=== PATIENT | male | born 1990 | race Caucasian/White ===

== ENCOUNTER 2021-01-20 08:46 | Observation (INO) | payer OTHER ==
[~2021-01-20] VITALS: Ht 170.2 cm; Wt 73.2 kg
[2021-01-20] MEDS ORDERED: NS 1,000 ML IV ONE ×3 (08:55→09:25)
[2021-01-20] MEDS ORDERED: ACETAMINOPHEN TAB 650MG DOSE (2X325MG) PO ONE (09:30)
[2021-01-20 09:31] LABS: BASO # 0.1 10^3/uL (0.0-0.2); BASO % 0.3 % (0.0-1.0); EOS # 0.1 10^3/uL (0.0-0.5); EOS % 0.4 % (0.0-3.0); HEMATOCRIT 46.5 % (42.0-52.0); HEMOGLOBIN 15.5 g/dl (13.5-17.5); LYMPH # 0.9 10^3/uL (1.5-5.0); LYMPH % 4.8 % (24.0-44.0); MEAN CORPUSCULAR HGB CONC 33.3 g/dl (32.0-36.5); MONO # 0.8 10^3/uL (0.0-0.8); MONO % 4.2 % (2.0-8.0); NEUTROPHILS # 16.3 10^3/uL (1.5-8.5); NEUTROPHILS % 89.4 % (36.0-66.0); PLATELET COUNT, AUTOMATED 299 10^3/uL (150-450); WHITE BLOOD COUNT 18.2 10^3/uL (4.0-10.0)
[2021-01-20 09:43] LABS: PARTIAL THROMBOPLASTIN TIME 21.8 SECONDS (24.2-38.5); PROTHROMBIN TIME 13.4 SECONDS (12.5-14.3)
--- NOTE | 2021-01-20 09:43 | REP ---
INDICATION: fall/loc. COMPARISON: None. TECHNIQUE: Helical scanning is acquired. 5 mm axial images were reformatted. Coronal MPR images were generated. FINDINGS: Bone window settings demonstrate an intact bony calvarium. There is no evidence of skull fracture or incidental bony calvarial lesion. The visualized paranasal sinuses appear clear. No intraorbital abnormality is seen. On soft tissue window setting images; the lateral, third, and fourth ventricles are normal in size and position. Decker-white differentiation pattern is normal above and below the tentorium. There are is no evidence of intracranial hemorrhage. No mass, edema, infarction, or midline shift is seen. No extra-axial fluid collection is appreciated. IMPRESSION: Negative noncontrast head CT. <Electronically signed by Dami Mensah > 01/20/21 0986
--- NOTE | 2021-01-20 09:49 | REP ---
INDICATION: syncope. COMPARISON: None. FINDINGS: The technique utilized in obtaining the radiograph has magnified the cardiac silhouette and accentuated the interstitial markings. The superior mediastinal structures are midline. The cardiac silhouette is unremarkable in size, shape, and position. The diaphragmatic surfaces of the lungs are regular, and the costophrenic angles are clear. The pulmonary torres are clear. The imaged osseous structures are intact. IMPRESSION: There is no acute cardiopulmonary disease. <Electronically signed by Bobby Mccauley > 01/20/21 0985
[2021-01-20 10:03] LABS: ALBUMIN 4.4 GM/DL (3.2-5.2); BILIRUBIN,DIRECT 0.2 MG/DL (0.0-0.2); BILIRUBIN,TOTAL 0.9 MG/DL (0.2-1.0); CALCIUM LEVEL 9.2 MG/DL (8.5-10.1); CK-MB VALUE MASS 3.9 NG/ML (<3.6); CREATININE FOR GFR 1.9 MG/DL (0.70-1.30); GLOMERULAR FILTRATION RATE 44.2 (>60); MB/CK RELATIVE INDEX 0.47 (< OR =4); POTASSIUM SERUM 5.9 MEQ/L (3.5-5.1); TOTAL PROTEIN 7.8 GM/DL (6.4-8.2); TROPONIN I 0.02 NG/ML (< 0.10)
[2021-01-20] MEDS ORDERED: DEXTROSE 50% 50 ML SYRINGE IV STA (10:13)
[2021-01-20] MEDS ORDERED: SODIUM BICARBONATE 8.4% INJ 50 ML SYRINGE IV STA (10:13)
[2021-01-20] MEDS ORDERED: SOD POLYSTYRENE SULFONATE SUSP 15 GM/60 ML UD PO ONE (10:15)
[2021-01-20] MEDS ORDERED: ALBUTEROL SULFATE 2.5 MG/0.5 ML INH NEB SOLN INH ONE (10:15)
[2021-01-20] MEDS ORDERED: HumuLIN R (REGULAR) INSULIN (NovoLIN R) **100U/ML** PER UNIT IV ONE (10:15)
[2021-01-20] MEDS ORDERED: ACETAMINOPHEN TAB 650MG DOSE (2X325MG) PO PRN (11:10)
[2021-01-20] MEDS: NS 1,000 ML IV SCH ×2 (11:58→20:09)
--- NOTE | 2021-01-20 11:59 | HPEPDOC ---
[facility] Medical History & Physical Date of Admission January 20, 2021 Date of Service: January 20, 2021 Attending Physician: ALICE ROSSI MD History and Physical CHIEF COMPLAINT: fever HISTORY OF PRESENT ILLNESS: Naseem Salas is a 30 year old male who presented to the ED after a syncopal episode this morning. Patient states he was completing a ruck march today where he was alternating between jogging and walking with 47lbs of gear on his back. He notes that he completed about 11.25 miles of this. At some point he began to feel lightheaded and short of breath. He was noted to pass out and fall to the ground. He was told by the people who witness the event that he was out for about 30 seconds and was somewhat confused when he woke up. In the field, rectal temp is reported as 105F. He noted feeling nauseous and vomiting a small amount of Pedialyte after the event before being brought to the hospital. He currently denies nausea. He states he has completed this type of work out multiple times in the past without any issues. He states the only difference today was that he wore compression socks along with his regular socks. He states his feet felt very hot during the run. He does have blisters on his feet which have been hurting when he runs. He also notes a 10lb weight loss over the past 2 weeks while he has been in training. He states it is typical for him to lose weight like this while training. He reports good appetite with normal food and water intake recently. No other recent fevers or chills. No night sweats. PAST MEDICAL HISTORY: None PAST SURGICAL HISTORY: Right wrist plates and screws SOCIAL HISTORY: Intermittent tobacco use last 11 years, 1/2 ppd for 2 weeks at a time when out in the field. No alcohol use. No illicit substance use. Works in the [email or web address], [employer] FAMILY HISTORY: Patient unaware of any medical conditions in his family members. ALLERGIES: Please see below. REVIEW OF SYSTEMS: CONSTITUTIONAL: Positive as per HPI. Denies chills, night sweats, fatigue. HEENT: Denies change in vision, change in hearing. CARDIOVASCULAR: Per HPI RESPIRATORY: Dry cough this morning. Denies hemoptysis, wheezing. GASTROINTESTINAL: Positive per HPI. Denies abdominal pain, diarrhea, constipation, blood in stool. GENITOURINARY: Denies dysuria, urinary frequency, urinary urgency. SKIN: Denies rash, lesions. MUSCULOSKELETAL: Denies joint pain or muscle aches. NEUROLOGICAL: Denies headache, weakness. PSYCHIATRIC: Denies change in mood. HOME MEDICATIONS: Please see below. PHYSICAL EXAMINATION: VITAL SIGNS: See below GENERAL: Alert, comfortable, in no acute distress HEENT: Normocephalic, atraumatic, sclera anicteric, dry mucous membranes NECK: Supple, trachea midline, no lymphadenopathy CARDIOVASCULAR: Regular rate and rhythm, normal S1 and S2. No murmurs, rubs, or gallops RESPIRATORY: Clear to auscultation bilaterally with equal air entry bilaterally. No wheezing, rhonchi, or rales. ABDOMEN: Soft, nontender, nondistended, bowel sounds present, no masses or hepatosplenomegaly appreciated EXTREMITIES: No cyanosis or edema. Pulses 2+/4 in bilateral upper and lower extremities SKIN: Large open blisters on bilateral foot soles without drainage, erythema, or swelling. NEUROLOGIC: Alert and oriented x3 to person, place and time. No focal deficits appreciated LABORATORY DATA: See below. IMAGING: - Head CT Negative noncontrast head CT. - CXR There is no acute cardiopulmonary disease. MICROBIOLOGY: Please see below. ASSESSMENT: 30 year old male who presented to the ED after a syncopal episode while exercising found to have acute renal failure with high potassium level, admitted for further management. PLAN: # Syncope secondary to heat exhaustion and dehydration - CT head negative - etiology likely dehydration given clinical picture with LEONARDO. IV fluid hydration as below. - also has electrolyte abnormality, monitor on telemetry. # Acute renal failure likely 2/2 dehydration - check urine electrolytes, suspect pre-renal etiology - s/p 2 L NS, continue IV fluids at 125ml/hr # Hyperkalemia likely 2/2 LEONARDO and dehydration - EKG reviewed, question of hyperacute t-wave, monitor on telemetry and repeat EKG when potassium improved - s/p IV sodium bicarb, albuterol, insulin with D50, and Kayexalate in the ED - repeat labs in 4 hours # Elevated WBC count likely 2/2 dehydration - fever prior to presentation, afebrile in the hospital, explained by exercising in the heat - blood cultures x2 drawn and pending - UA negative. CXR negative. - ROS negative for infectious source. No antibiotics at this time. - trend CBC daily, expect resolution with hydration DVT prophylaxis: SC heparin Disposition: - Admitted for observation to med/surg with telemetry monitoring Vital Signs Vital Signs Date Time Temp Pulse Resp B/P (MAP) Pulse Ox O2 Delivery O2 Flow Rate FiO2 01/20/21 11:01 94 18 98 Room Air 01/20/21 11:00 124/68 (86) 01/20/21 09:01 98.0 Laboratory Data Labs 24H Laboratory Tests 2 01/20/21 09:19: Immature Granulocyte % (Auto) 0.9, Neutrophils (%) (Auto) 89.4H, Lymphocytes (%) (Auto) 4.8L, Monocytes (%) (Auto) 4.2, Eosinophils (%) (Auto) 0.4, Basophils (%) (Auto) 0.3, Neutrophils # (Auto) 16.3H, Lymphocytes # (Auto) 0.9L, Monocytes # (Auto) 0.8, Eosinophils # (Auto) 0.1, Basophils # (Auto) 0.1, Nucleated Red Blood Cells % (auto) 0.0, Prothrombin Time 13.4, Prothromb Time International Ratio 1.00, Activated Partial Thromboplast Time 21.8L, POC Lactate (Misc Panel) 1.84, Anion Gap 9, Glomerular Filtration Rate 44.2L, Calcium Level 9.2, Total Bilirubin 0.9, Direct Bilirubin 0.2, Aspartate Amino Transf (AST/SGOT) 52H, Alanine Aminotransferase (ALT/SGPT) 51, Alkaline Phosphatase 72, Total Creatine Kinase 823H, Creatine Kinase MB 3.9H, Creatine Kinase MB Relative Index 0.47, Troponin I 0.02, Total Protein 7.8, Albumin 4.4, Albumin/Globulin Ratio 1.3, Lipase 185 01/20/21 10:04: Urine Color YELLOW, Urine Appearance HAZY, Urine pH 5.0, Urine Specific [place] 1.018, Urine Protein 1+H, Urine Glucose (UA) NEGATIVE, Urine Ketones 1+H, Urine Blood 1+H, Urine Nitrite NEGATIVE, Urine Bilirubin NEGATIVE, Urine Urobilinogen 0.2, Urine Leukocyte Esterase NEGATIVE, Urine WBC (Auto) 3, Urine RBC (Auto) 1, Urine Hyaline Casts (Auto) 12, Urine Bacteria (Auto) 1+H, Urine Squamous Epithel ial Cells 0, Urine Mucus (Auto) SMALL, Urine Sperm (Auto) 5/21/21 10:53: Bedside Glucose (Misc Panel) 75 CBC/BMP Laboratory Tests 01/20/21 09:19 Microbiology Microbiology 01/20/21 Blood Culture, Received Pending 01/20/21 Blood Culture, Received Pending Home Medications No Active Prescriptions or Reported Meds Allergies Coded Allergies: No Known Allergies (Unverified , 01/20/21) GME ATTESTATION GME ATTESTATION My faculty preceptor for this patient encounter was physically present during the encounter and was fully available. All aspects of the patient interview, examination, medical decision making process, and medical care plan development were reviewed and approved by the faculty preceptor. The faculty preceptor is aware and concurs with the plan as stated in the body of this note and will attest to such by his/her cosignature. ATTENDING NOTE I, Alice Rossi, have independently examined this patient and performed my own physical exam, as well as reviewed the documentation and edited where necessary. I have discussed in detail with the resident / student the findings and plan of treatment as documented by the resident / student and edited their note. I agree with their findings and treatment plan and have edited their documentation. I will continue to follow the patient during this hospital stay. Time spent on discharge 35 minutes DAHLIA YEAGER D.O. January 20, 2021 11:59 ALICE ROSSI MD January 20, 2021 13:09
[2021-01-20 13:56] LABS: BLOOD UREA NITROGEN 20 MG/DL (7-18); CALCIUM LEVEL 8.2 MG/DL (8.5-10.1); CARBON DIOXIDE LEVEL 23 MEQ/L (21-32); CHLORIDE LEVEL 108 MEQ/L (98-107); CREATININE FOR GFR 1.31 MG/DL (0.70-1.30); GLOMERULAR FILTRATION RATE > 60.0 (>60); GLUCOSE, FASTING 103 MG/DL (70-100); MAGNESIUM LEVEL 2.2 MG/DL (1.8-2.4); POTASSIUM SERUM 3.8 MEQ/L (3.5-5.1); SODIUM LEVEL 140 MEQ/L (136-145)
[2021-01-20] MEDS: HEPARIN SOD (PORCINE) 5000UNITS/ML 1ML VIAL/SYRINGE SC SCH ×2 (14:00→22:59)
[2021-01-20 15:00] VITALS: BP 110/70
--- NOTE | 2021-01-20 17:06 | ECGEPIP ---
[facility] Test Date: 2021-01-20 Pat Name: DL MERRILL Department: Room: 0102 Gender: Male [employer] Driver: JANICE : 1990 Requested By: DAHLIA YEAGER D.O. Order Number: [id number] Reading MD: Felix Castillo Measurements Intervals [place] Rate: 71 P: 43 VT: 164 QRS: 30 QRSD: 92 T: 17 QT: 390 QTc: 423 Interpretive Statements Normal sinus rhythm with sinus arrhythmia Similar to tracing done 916 on same date Electronically Signed on 01-20-2021 17:05:56 EDT by Felix Castillo
[2021-01-20 19:45] LABS: BLOOD UREA NITROGEN 16 MG/DL (7-18); CALCIUM LEVEL 7.7 MG/DL (8.5-10.1); CARBON DIOXIDE LEVEL 24 MEQ/L (21-32); CHLORIDE LEVEL 110 MEQ/L (98-107); CREATININE FOR GFR 1.01 MG/DL (0.70-1.30); GLOMERULAR FILTRATION RATE > 60.0 (>60); GLUCOSE, FASTING 116 MG/DL (70-100); POTASSIUM SERUM 3.3 MEQ/L (3.5-5.1); SODIUM LEVEL 140 MEQ/L (136-145)
--- NOTE | 2021-01-20 20:33 | ECGEPIP ---
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
[2021-01-20 22:00] VITALS: BP 108/61
[2021-01-21] MEDS: NS 1,000 ML IV SCH (03:45)
[2021-01-21 06:10] VITALS: BP 110/62
[2021-01-21] MEDS: HEPARIN SOD (PORCINE) 5000UNITS/ML 1ML VIAL/SYRINGE SC SCH (06:36)
[2021-01-21 07:33] LABS: BASO % 0.4 % (0.0-1.0); EOS # 0.3 10^3/uL (0.0-0.5); EOS % 3.3 % (0.0-3.0); HEMATOCRIT 38.9 % (42.0-52.0); HEMOGLOBIN 12.8 g/dl (13.5-17.5); LYMPH # 2.3 10^3/uL (1.5-5.0); LYMPH % 27.9 % (24.0-44.0); MEAN CORPUSCULAR HEMOGLOBIN 31.3 pg (27.0-33.0); MEAN CORPUSCULAR HGB CONC 32.9 g/dl (32.0-36.5); MEAN CORPUSCULAR VOLUME 95.1 fl (80.0-96.0); MONO # 0.9 10^3/uL (0.0-0.8); MONO % 11.2 % (2.0-8.0); NEUTROPHILS # 4.7 10^3/uL (1.5-8.5); NEUTROPHILS % 56.7 % (36.0-66.0); PLATELET COUNT, AUTOMATED 231 10^3/uL (150-450); RED BLOOD COUNT 4.09 10^6/uL (4.30-6.10); WHITE BLOOD COUNT 8.2 10^3/uL (4.0-10.0)
[2021-01-21 07:53] LABS: BLOOD UREA NITROGEN 12 MG/DL (7-18); CALCIUM LEVEL 7.7 MG/DL (8.5-10.1); CARBON DIOXIDE LEVEL 22 MEQ/L (21-32); CHLORIDE LEVEL 115 MEQ/L (98-107); CREATININE FOR GFR 0.99 MG/DL (0.70-1.30); GLOMERULAR FILTRATION RATE > 60.0 (>60); GLUCOSE, FASTING 89 MG/DL (70-100); POTASSIUM SERUM 3.7 MEQ/L (3.5-5.1); SODIUM LEVEL 142 MEQ/L (136-145)
--- NOTE | 2021-01-21 12:04 | DS.PDOC ---
Discharge Summary General Date of Admission January 20, 2021 at 11:43 Date of Discharge January 21, 2021 Attending Physician: ALICE ROSSI MD Discharge Summary PROCEDURES PERFORMED DURING STAY: None. ADMITTING DIAGNOSES: Heat exhaustion Dehydration Syncopal episode 2/2 above Acute kidney injury Hyperkalemia DISCHARGE DIAGNOSES: Syncopal episode 2/2 dehydration and heat exhaustion, resolved COMPLICATIONS/CHIEF COMPLAINT: Syncope. HISTORY OF PRESENT ILLNESS: 30 year old male who presented to the ED after a syncopal episode this morning. Patient states he was completing a ruck march today where he was alternating between jogging and walking with 47lbs of gear on his back. He notes that he completed about 11.25 miles of this. At some point he began to feel lightheaded and short of breath. He was noted to pass out and fall to the ground. He was told by the people who witness the event that he was out for about 30 seconds and was somewhat confused when he woke up. In the field, rectal temp is reported as 105F. He noted feeling nauseous and vomiting a small amount of Pedialyte after the event before being brought to the hospital. He currently denies nausea. He states he has completed this type of work out multiple times in the past without any issues. He states the only difference today was that he wore compression socks along with his regular socks. He states his feet felt very hot during the run. He does have blisters on his feet which have been hurting when he runs. He also notes a 10lb weight loss over the past 2 weeks while he has been in training. He states it is typical for him to lose weight like this while training. He reports good appetite with normal food and water intake recently. No other recent fevers or chills. No night sweats. Work up in the ED revealed elevated WBC, elevated potassium, and elevated creatinine. HOSPITAL COURSE: Patient was admitted to the hospital for management of acute kidney injury secondary to dehydration with hyperkalemia. The patient was treated with IV sodium bicarb, albuterol, insulin with D50, and Kayexalate in the ED. He also received 2 L IV fluid with normal saline in the ED. Follow up BMP showed resolution of hyperkalemia and improvement of acute kidney injury. Patient was kept on telemetry to monitor for arrhythmia or changes related to hyperkalemia. He was kept on IV fluids overnight with normal saline at a rate of 125mls/hr. The patient's electrolytes remained stable and his acute kidney injury had resolved on AM lab work on the day of discharge. His WBC count also returned to normal range on the day of discharge. The patient reported feeling well and functioning at his baseline on the day of discharge. DISCHARGE MEDICATIONS: Please see below. ALLERGIES: Please see below. PHYSICAL EXAMINATION ON DISCHARGE: VITAL SIGNS: Please see below. GENERAL: Alert, comfortable, in no acute distress HEENT: Normocephalic, atraumatic, sclera anicteric, dry mucous membranes NECK: Supple, trachea midline, no lymphadenopathy CARDIOVASCULAR: Regular rate and rhythm, normal S1 and S2. No murmurs, rubs, or gallops RESPIRATORY: Clear to auscultation bilaterally with equal air entry bilaterally. No wheezing, rhonchi, or rales. ABDOMEN: Soft, nontender, nondistended, bowel sounds present, no masses or h epatosplenomegaly appreciated EXTREMITIES: No cyanosis or edema. Pulses 2+/4 in bilateral upper and lower extremities SKIN: Large open blisters on bilateral foot soles without drainage, erythema, or swelling. NEUROLOGIC: Alert and oriented x3 to person, place and time. No focal deficits appreciated LABORATORY DATA: Please see below. IMAGING: - Head CT Negative noncontrast head CT. - CXR There is no acute cardiopulmonary disease. PROGNOSIS: Good ACTIVITY: As tolerated. DIET: As tolerated. DISPOSITION: 01 Home, Self-Care. DISCHARGE INSTRUCTIONS: 1. Please follow up with your PCP in 7-10 days 2. Stay hydrated 3. If your symptoms return please call your PCP or return to the ED for further evaluation. ITEMS TO FOLLOWUP ON ON OUTPATIENT: None DISCHARGE CONDITION: Stable. TIME SPENT ON DISCHARGE: Greater than 35 minutes. Vital Signs/I&Os Vital Signs Date Time Temp Pulse Resp B/P (MAP) Pulse Ox O2 Delivery O2 Flow Rate FiO2 01/21/21 06:10 97.8 61 18 110/62 (78) 98 Room Air I&O- Last 24 Hours up to 6 AM 01/21/21 06:00 Intake Total 4220 ml Balance 4220 ml Laboratory Data Labs 24H Laboratory Tests 2 01/20/21 12:50: Anion Gap 9, Glomerular Filtration Rate > 60.0, Calcium Level 8.2L, Magnesium Level 2.2 01/20/21 18:44: Anion Gap 6L, Glomerular Filtration Rate > 60.0, Calcium Level 7.7L 01/21/21 06:52: Anion Gap 5L, Glomerular Filtration Rate > 60.0, Calcium Level 7.7L, Magnesium Level 2.0, Immature Granulocyte % (Auto) 0.5, Neutrophils (%) (Auto) 56.7, Lymphocytes (%) (Auto) 27.9, Monocytes (%) (Auto) 11.2H, Eosinophils (%) (Auto) 3.3H, Basophils (%) (Auto) 0.4, Neutrophils # (Auto) 4.7, Lymphocytes # (Auto) 2.3, Monocytes # (Auto) 0.9H, Eosinophils # (Auto) 0.3, Basophils # (Auto) 0.0, Nucleated Red Blood Cells % (auto) 0.0 01/21/21 10:08: CBC/BMP Laboratory Tests 01/20/21 12:50 01/20/21 18:44 01/21/21 06:52 Microbiology Microbiology 01/20/21 Respiratory Virus Panel (PCR) (RODGER) - Final, Complete 01/20/21 Blood Culture - Preliminary, Resulted No growth after 24 hours . All specim... 01/20/21 Blood Culture - Preliminary, Resulted No growth after 24 hours . All specim... Discharge Medications No Active Prescriptions or Reported Meds Allergies Coded Allergies: No Known Allergies (Unverified , 01/20/21) GME ATTESTATION GME ATTESTATION My faculty preceptor for this patient encounter was physically present during the encounter and was fully available. All aspects of the patient interview, e xamination, medical decision making process, and medical care plan development were reviewed and approved by the faculty preceptor. The faculty preceptor is aware and concurs with the plan as stated in the body of this note and will attest to such by his/her cosignature. ATTENDING NOTE I, Alice Rossi, have independently examined this patient and performed my own physical exam, as well as reviewed the documentation and edited where necessary. I have discussed in detail with the resident / student the findings and plan of treatment as documented by the resident / student and edited their note. I agree with their findings and treatment plan and have edited their documentation. I will continue to follow the patient during this hospital stay. Time spent on discharge 35 minutes MOVSESIAN,DAHLIA D.O. January 21, 2021 12:04 ALICE ROSSI MD January 21, 2021 14:05
== END 2021-01-21 11:37 | disposition home or self-care (01) ==
LOC: M ED 08:46 → EDBD 08:46 → M ED INP 11:43 → ENRESERVTM 14:12 → ENRESERVDT 14:12 → M MSPAV 15:00
PROVIDERS: ADMIT Internal Medicine; ATTEND Internal Medicine
DX: T67.5XXA Heat exhaustion, unspecified, initial encounter (principal); E86.0 Dehydration; R55 Syncope and collapse; N17.9 Acute kidney failure, unspecified; E87.5 Hyperkalemia; F17.218 Nicotine dependence, cigarettes, with other nicotine-induced disorders
CPT/HCPCS: 36415; 70450; 71045; 80048; 80076; 81001; 82550; 82553; 83605; 83690; 83735; 84484; 85025; 85610; 85730; 87040; 87798; 93005; 94640; 96361; 96372; 96374; 96375; 99285; J1644